=== PATIENT | male | born 1985 | race Hispanic/Latino ===

== ENCOUNTER 2018-10-31 19:36 | Inpatient (IN) | payer MEDICAID ==
[2018-10-31 19:37] VITALS: BMI 22.4
--- NOTE | 2018-10-31 20:11 | ED PDOC ---
HPI: Psych/Substance Abuse Time Seen by Provider: 10/31/18 19:43 Chief Complaint (Nursing): Alcohol Ingestion Chief Complaint (Provider): Intoxicated ED Caveat: Intoxicated History Per: Patient, EMS Onset/Duration Of Symptoms: Mins Additional Complaint(s): 32 year old male presents to the ED via EMS due to intoxication. EMS reports patient was found wandering the streets intoxicated. Patient admits to drinking a pint of vodka today and states he has been drinking every day. He reports he has thoughts of suicide but denies homicidal ideation. Patient states he is unsure as to why he was walking around. Denies chest pain, nausea, vomiting, or shortness of breath. He reports he takes Lexapro but is unsure if it is working. PMD: none provided Past Medical History Reviewed: Historical Data, Nursing Documentation, Vital Signs Vital Signs: Last Vital Signs Temp 98.1 F 10/31/18 19:40 Pulse 143 H 10/31/18 19:40 Resp 20 10/31/18 19:40 BP 151/108 H 10/31/18 19:40 Pulse Ox 98 10/31/18 19:40 - Medical History PMH: No Chronic Diseases Denies: Diabetes, Hepatitis, HIV, HTN, Seizures, Sexually Transmitted Disease - Surgical History Surgical History: No Surg Hx - Family History Family History: States: Unknown Family Hx - Social History Alcohol: Other (Daily) - Immunization History Hx Tetanus Toxoid Vaccination: No Hx Influenza Vaccination: No Hx Pneumococcal Vaccination: No - Home Medications Home Medications: Ambulatory Orders Medication Instructions Recorded Ondansetron ODT [Zofran ODT] 1 odt PO BID PRN #15 odt 08/27/18 Venlafaxine [Effexor XR] 150 mg PO DAILY 08/27/18 chlordiazePOXIDE [Librium] 50 mg PO UPON ADM #20 cap 08/27/18 Escitalopram [Lexapro] 10 mg PO DAILY #30 tab 10/03/18 Gabapentin [Neurontin] 300 mg PO BID #60 cap 10/03/18 traZODone [Desyrel] 100 mg PO HS #30 tab 10/03/18 - Allergies Allergies/Adverse Reactions: Allergies Allergy/AdvReac Type Severity Reaction Status Date / Time nut - unspecified Allergy Severe SHORTNESS Verified 10/31/18 19:40 OF BREATH Review of Systems ROS Statement: Except As Marked, All Systems Reviewed And Found Negative Cardiovascular: Negative for: Chest Pain Respiratory: Negative for: Shortness of Breath Gastrointestinal: Negative for: Nausea, Vomiting Psych: Positive for: Suicidal ideation Physical Exam - Reviewed Nursing Documentation Reviewed: Yes Vital Signs Reviewed: Yes - Physical Exam Appears: Positive for: No Acute Distress Head Exam: Positive for: ATRAUMATIC, NORMOCEPHALIC Skin: Positive for: Normal Color, Warm, Dry Eye Exam: Positive for: Normal appearance Neck: Positive for: Normal, Painless ROM Cardiovascular/Chest: Positive for: Regular Rate, Rhythm Respiratory: Positive for: Normal Breath Sounds. Negative for: Wheezing, Respiratory Distress Gastrointestinal/Abdominal: Positive for: Normal Exam, Soft. Negative for: Tenderness Extremity: Positive for: Normal ROM Neurological/Psych: Positive for: Awake, Alert, Normal Tone - Laboratory Results Result Diagrams: 10/31/18 21:00 10/31/18 21:00 Interpretation Of Abn Labs: 393 alcohol - ECG O2 Sat by Pulse Oximetry: 98 (RA) Pulse Ox Interpretation: Normal - Progress ED Course And Treament: 2259: Dr. Benton to take over care. Crisis eval needed when sobriety reached. Medical Decision Making Medical Decision Making: Initial Impression: Intoxication Initial Plan: --Alcohol serum stat --CMP --Urine drug screen --Urine dipstick --CBC --1:1 observation Scribe Attestation: Documented by Jorge Ward acting as a scribe for Abhishek Grewal MD. Provider Scribe Attestation: All medical record entries made by the Scribe were at my direction and perso jac dictated by me. I have reviewed the chart and agree that the record accurately reflects my personal performance of the history, physical exam, medical decision making, and the department course for this patient. I have also personally directed, reviewed, and agree with the discharge instructions and disposition. Disposition - Clinical Impression Clinical Impression: Alcohol abuse - Patient ED Disposition Is Patient to be Admitted: Transfer of Care - Disposition Disposition Time: 20:30 Condition: FAIR Patient Signed Over To: Spike Benton
[2018-10-31 21:15] LABS: BASO % 0.6 % (0.0-2.0); EOS % 0.1 % (0.0-4.0); HEMOGLOBIN 17.7 g/dL (12.0-18.0); LYMPH # 1.7 K/uL (1.0-4.3); MEAN CELL VOLUME 95.6 fl (80.0-94.0); MEAN CORPUSCULAR HEMOGLOBIN 32.1 pg (27.0-31.0); MEAN CORPUSCULAR HGB CONC 33.5 g/dL (33.0-37.0); MEAN PLATELET VOLUME 7.3 fl (7.2-11.7); MONO # 0.5 K/uL (0.0-0.8); MONO % 8.8 % (0.0-10.0); NEUT # 3.7 K/uL (1.8-7.0); NEUT % 61.5 % (50.0-75.0); RBC 5.52 Mil/uL (4.40-5.90); RED CELL DISTRIBUTION WIDTH 13.8 % (11.5-14.5)
[2018-10-31 22:00] LABS: ALB/GLOB RATIO 1.4 (1.0-2.1); ALBUMIN 5.3 g/dL (3.5-5.0); ALT/SGPT 44 U/L (21-72); AST/SGOT 62 U/L (17-59); BLOOD UREA NITROGEN 9 mg/dl (9-20); CALCIUM 9.4 mg/dL (8.4-10.2); GFR NON-AFRICAN AMERICAN > 60
[2018-11-01 00:50] LABS: BARBITURATES, UR NEGATIVE (NEGATIVE); BENZODIAZEPINES, UR NEGATIVE (NEGATIVE); OPIATES, UR NEGATIVE (NEGATIVE); PHENCYCLIDINE, UR NEGATIVE (NEGATIVE)
--- NOTE | 2018-11-01 01:19 | ED PDOC ---
- Laboratory Results Result Diagrams: 10/31/18 21:00 11/02/18 05:30 Lab Results: Total Bilirubin 0.6 mg/dl (0.2-1.3) 10/31/18 21:00 AST 62 U/L (17-59) H 10/31/18 21:00 ALT 44 U/L (21-72) 10/31/18 21:00 Alkaline Phosphatase 91 U/L (38-126) 10/31/18 21:00 Total Protein 9.0 G/DL (6.3-8.2) H 10/31/18 21:00 Albumin 5.3 g/dL (3.5-5.0) H 10/31/18 21:00 Globulin 3.7 gm/dL (2.2-3.9) 10/31/18 21:00 Albumin/Globulin Ratio 1.4 (1.0-2.1) 10/31/18 21:00 - ECG O2 Sat by Pulse Oximetry: 98 (RA) Pulse Ox Interpretation: Normal Medical Decision Making Medical Decision Makin:00 Patient signed out to this provider by Dr. Grewal pending sobriety and crisis evaluation. 04:09 1 mg of Ativan ordered. 04:27 Patient was evaluated by crisis and diagnosed with alcohol use as per Dr. Ayon. Continues to pend complete sobriety. 07:00 On reevaluation, patient reports feeling shaky and lightheaded. 1 mg of Ativan given. He will be transferred to Dr. Mosqueda pending reevaluation and final disposition. Scribe Attestation: Documented by Crystal Hunter acting as a scribe for Spike Benton MD. Provider Scribe Attestation: All medical record entries made by the Scribe were at my direction and personally dictated by me. I have reviewed the chart and agree that the record accurately reflects my personal performance of the history, physical exam, medical decision making, and the department course for this patient. I have also personally directed, reviewed, and agree with the discharge instructions and disposition. Disposition - Clinical Impression Clinical Impression: Alcohol abuse, Alcohol withdrawal delirium, acute, hyperactive - POA Present On Arrival: None - Disposition Disposition: Transfer of Care Disposition Time: 07:00 Condition: STABLE Patient Signed Over To: Didier Mosqueda III
--- NOTE | 2018-11-01 07:25 | ED PDOC ---
- Laboratory Results Result Diagrams: 10/31/18 21:00 10/31/18 21:00 Lab Results: Total Bilirubin 0.6 mg/dl (0.2-1.3) 10/31/18 21:00 AST 62 U/L (17-59) H 10/31/18 21:00 ALT 44 U/L (21-72) 10/31/18 21:00 Alkaline Phosphatase 91 U/L (38-126) 10/31/18 21:00 Total Protein 9.0 G/DL (6.3-8.2) H 10/31/18 21:00 Albumin 5.3 g/dL (3.5-5.0) H 10/31/18 21:00 Globulin 3.7 gm/dL (2.2-3.9) 10/31/18 21:00 Albumin/Globulin Ratio 1.4 (1.0-2.1) 10/31/18 21:00 - ECG O2 Sat by Pulse Oximetry: 98 (RA) Pulse Ox Interpretation: Normal Medical Decision Making Medical Decision Makin 32yo male, brought to ER due to alcohol intoxication. Patient signed out to me by Dr. Benton pending clinical sobriety. Bedside rounds performed, patient noted to be tremulous as well as diaphoretic. Concern for acute alcohol withdrawal syndrome. Ativan 1mg ordered IV. = 0856 CIWA score of 24, required IV ativan (multiple dose) for relief of symptoms Will admit to Tele-Obs for acute alcohol withdrawal. Case discussed with Dr. Weiss, medicine fashion patternmaker, care transferred. 1130 Dr Weiss in ED. Scribe Attestation: Documented by Taya Leonardo acting as a scribe for Didier Mosqueda DO. Provider Scribe Attestation: All medical record entries made by the Scribe were at my direction and personally dictated by me. I have reviewed the chart and agree that the record accurately reflects my personal performance of the history, physical exam, medical decision making, and the department course for this patient. I have also personally directed, reviewed, and agree with the discharge instructions and disposition. Disposition - Clinical Impression Clinical Impression: Alcohol abuse, Alcohol withdrawal delirium, acute, hyperactive - POA Present On Arrival: None - Disposition Disposition: Admitted as In-Patient Disposition Time: 09:30 Condition: IMPROVED
--- NOTE | 2018-11-01 08:55 | RAD ---
Date of service: 11/01/2018 HISTORY: etoh withdrawal COMPARISON: No prior. FINDINGS: LUNGS: No active pulmonary disease. PLEURA: No significant pleural effusion identified, no pneumothorax apparent. CARDIOVASCULAR: No aortic atherosclerotic calcification present. Normal cardiac size. No pulmonary vascular congestion. OSSEOUS STRUCTURES: No significant abnormalities. VISUALIZED UPPER ABDOMEN: Normal. OTHER FINDINGS: None. IMPRESSION: No acute cardiopulmonary disease appreciated.
--- NOTE | 2018-11-01 09:00 | CARD ---
APPROVED REPORT Date of service: 11/01/2018 EKG Measurement Heart [id number] <Conclusion> Normal sinus rhythm Normal Electrocardiogram
[2018-11-01] MEDS: Dextrose 5%/Lactated Ringer's 1,000 ML IV SCH ×2 (11:49→20:17)
--- NOTE | 2018-11-01 22:23 | CP.PCM.HP ---
History of Present Illness - History of Present Illness History of Present Illness: This is a 32 y/o male admitted for alcohol intoxication and alcohol withdrawal. He was noted walking in the streets of [place] severely intoxicated. He claims that he has been drinking almost daily for the past few days. He was admitted a few times to [facility] and other facilities and had been in different detox program but relapse very easily. He's been living with a friend in [place]. 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 He claims to have been depressed for sometime and has been on Lexapro 10 mg. He claims to have some suicidal ideation recently. His parents and sister live in another town( [place]) . He was not clear about his relationship with his family. Present on Admission - Present on Admission Any Indicators Present on Admission: No History of DVT/PE: No History of Uncontrolled Diabetes: No Urinary Catheter: No Decubitus Ulcer Present: No Review of Systems - Gastrointestinal Gastrointestinal: Belching, Bloating - Neurological Additional comments: tremors Past Patient History - Past Medical History & Family History Past Medical History?: No - Past Social History Smoking Status: Current Some Days Smoker - CARDIAC Hx Cardiac Disorders: No - PULMONARY Hx Respiratory Disorders: No - NEUROLOGICAL Hx Neurological Disorder: No - HEENT Hx HEENT Problems: No - RENAL Hx Chronic Kidney Disease: No - ENDOCRINE/METABOLIC Hx Endocrine Disorders: No - HEMATOLOGICAL/ONCOLOGICAL Hx Blood Disorders: No - INTEGUMENTARY Hx Dermatological Problems: No - MUSCULOSKELETAL/RHEUMATOLOGICAL Hx Musculoskeletal Disorders: No Hx Falls: Yes - GENITOURINARY/GYNECOLOGICAL Hx Genitourinary Disorders: No - PSYCHIATRIC Hx Psychophysiologic Disorder: No Hx Substance Use: Yes - SURGICAL HISTORY Hx Surgeries: Yes Other/Comment: Umbilical Hernia - ANESTHESIA Hx Anesthesia: Yes Hx Anesthesia Reactions: No Meds Allergies/Adverse Reactions: Allergies Allergy/AdvReac Type Severity Reaction Status Date / Time nut - unspecified Allergy Severe SHORTNESS Verified 10/31/18 19:40 OF BREATH Physical Exam - Head Exam Head Exam: NORMAL INSPECTION - Eye Exam Eye Exam: Normal appearance - Respiratory Exam Respiratory Exam: Clear to Auscultation Bilateral - Cardiovascular Exam Cardiovascular Exam: REGULAR RHYTHM - GI/Abdominal Exam GI & Abdominal Exam: Normal Bowel Sounds - Neurological Exam Neurological exam: Altered, Oriented x3 Additional comments: significant DT's - Psychiatric Exam Psychiatric exam: Depressed Results - Vital Signs Recent Vital Signs: Last Vital Signs Temp 98.7 F 11/01/18 16:12 Pulse 85 11/01/18 16:12 Resp 20 11/01/18 16:19 BP 143/81 11/01/18 16:12 Pulse Ox 96 11/01/18 16:12 - Labs Result Diagrams: 10/31/18 21:00 10/31/18 21:00 Labs: Laboratory Results - last 24 hr 10/31/18 11/01/18 21:00 00:12 Urine Opiates Screen Negative Urine Methadone Screen Negative Ur Barbiturates Screen Negative Ur Phencyclidine Scrn Negative Ur Amphetamines Screen Negative U Benzodiazepines Scrn Negative U Oth Cocaine Metabols Negative U Cannabinoids Screen Positive H Alcohol, Quantitative 393 H* Assessment & Plan (1) Alcohol withdrawal delirium, acute, hyperactive Status: Acute (2) Alcohol abuse Status: Acute (3) Depressive disorder Status: Acute - Assessment and Plan (Free Text) Plan: Hydrate NPO for now Zofran pantoprazole Psych eval ativan mg
[2018-11-02] MEDS: Dextrose 5%/Lactated Ringer's 1,000 ML IV SCH (03:31)
[2018-11-02 08:20] LABS: ALB/GLOB RATIO 1.4 (1.0-2.1); ALBUMIN 4.8 g/dL (3.5-5.0); ALT/SGPT 40 U/L (21-72); AST/SGOT 47 U/L (17-59); BLOOD UREA NITROGEN 12 mg/dl (9-20); CALCIUM 10.1 mg/dL (8.4-10.2); GFR NON-AFRICAN AMERICAN > 60
--- NOTE | 2018-11-02 10:31 | CP.PCM.CON ---
History of Present Illness - History of Present Illness History of Present Illness: This is a 32 yr old male with h/o depression and alcohol dependence and admitted because of alcohol intoxication and alcohol withdrawl and currently on librium regimen and psych consult called for evaluation of depression as he was on lexapro and has expressed suicidal ideation recently.pt reports major stressor of having financial problems making him depressed and selfmedicating with alcohol.pt has been detoxed and denies any symptoms of Alcohol withdrawl. Past Patient History - Past Medical History & Family History Past Medical History?: No - Past Social History Smoking Status: Current Some Days Smoker - CARDIAC Hx Cardiac Disorders: No - PULMONARY Hx Respiratory Disorders: No - NEUROLOGICAL Hx Neurological Disorder: No - HEENT Hx HEENT Problems: No - RENAL Hx Chronic Kidney Disease: No - ENDOCRINE/METABOLIC Hx Endocrine Disorders: No - HEMATOLOGICAL/ONCOLOGICAL Hx Blood Disorders: No - INTEGUMENTARY Hx Dermatological Problems: No - MUSCULOSKELETAL/RHEUMATOLOGICAL Hx Musculoskeletal Disorders: No Hx Falls: Yes - GENITOURINARY/GYNECOLOGICAL Hx Genitourinary Disorders: No - PSYCHIATRIC Hx Psychophysiologic Disorder: No Hx Substance Use: Yes - SURGICAL HISTORY Hx Surgeries: Yes Other/Comment: Umbilical Hernia - ANESTHESIA Hx Anesthesia: Yes Hx Anesthesia Reactions: No Meds Allergies/Adverse Reactions: Allergies Allergy/AdvReac Type Severity Reaction Status Date / Time nut - unspecified Allergy Severe SHORTNESS Verified 10/31/18 19:40 OF BREATH - Medications Medications: Current Medications Chlordiazepoxide (Librium) 25 mg PO Q6 [facility] Last Admin: 11/02/18 03:31 Dose: 25 mg Folic Acid (Folic Acid) 1 mg PO DAILY [facility] Last Admin: 11/01/18 18:29 Dose: 1 mg Dextrose/Lactated Ringer's (Dextrose 5%/Lactated Ringer's) 1,000 mls @ 125 mls/hr IV .Q8H [facility] Stop: 11/02/18 11:26 Last Admin: 11/02/18 03:31 Dose: 125 mls/hr Ondansetron HCl (Zofran Inj) 6 mg IVP Q6 PRN PRN Reason: Nausea/Vomiting Last Admin: 11/01/18 11:42 Dose: 6 mg Pantoprazole Sodium (Protonix Inj) 40 mg IVP DAILY [facility] Last Admin: 11/01/18 11:48 Dose: 40 mg Thiamine HCl (Vitamin B1 Tab) 100 mg PO DAILY [facility] Last Admin: 11/01/18 18:29 Dose: 100 mg Physical Exam - Psychiatric Exam Psychiatric exam: Anxious, Depressed Additional comments: Pt is alert,oriented x3 with intact cognition.pt has depressed mood but affect is brighter with treatment and denies suicidal ideation..no psychosis and fair insight and fair judgement . Results - Vital Signs Recent Vital Signs: Last Vital Signs Temp 98.2 F 11/02/18 07:46 Pulse 71 11/02/18 07:46 Resp 18 11/02/18 07:46 BP 135/88 11/02/18 07:46 Pulse Ox 95 11/02/18 07:46 - Labs Result Diagrams: 10/31/18 21:00 11/02/18 05:30 Labs: Laboratory Results - last 24 hr 11/02/18 05:30 Sodium 140 Potassium 3.7 Chloride 93 L Carbon Dioxide 31 H Anion Gap 20 BUN 12 Creatinine 0.9 Est GFR ( Amer) > 60 Est GFR (Non-Af Amer) > 60 Random Glucose 92 Calcium 10.1 Magnesium 2.2 Total Bilirubin 1.4 H AST 47 ALT 40 Alkaline Phosphatase 64 Total Protein 8.1 Albumin 4.8 Globulin 3.4 Albumin/Globulin Ratio 1.4 Assessment & Plan - Assessment and Plan (Free Text) Assessment: Major depression,moderate Alcohol dependence Plan: i offered pt voluntary inpt psych admission but pt does not want to be admitted to psych unit but agreed to go to inpatient Alcohol rehab and licensed master social worker will provide referral to inpt alcohol rehab upon d/c . Pt has agreed to start lexapro 10 mg daily for depression and seroquel 25 mg hs . Alert psychiatry if worsening of depression.
[2018-11-03] MEDS: Dextrose 5%/0.45% NS 1,000 ML IV SCH (13:59)
[2018-11-04 00:59] VITALS: RESP 20
[2018-11-04] MEDS: Dextrose 5%/0.45% NS 1,000 ML IV SCH (02:00)
[2018-11-04 09:13] VITALS: BP 106/65; PULSE 77; TEMP 98.1
[2018-11-04] MEDS ORDERED: Pantoprazole 40 mg EC Tab PO SCH (09:45)
[2018-11-04 10:56] VITALS: O2SAT 98
--- NOTE | 2018-11-04 11:20 | CP.PCM.PCO ---
Assessment/Plan - Assessment and Plan (Free Text) Assessment: Patient seen and examined today Denies chest pain shortness of breath, nausea vomiting No more tremors visualized, librium tapered. Patient has a discharge plan, will move in with parents and referred to outpatient alcohol rehab. SW has given patient rehab information. Rx for seroquel and lexapro sent to pharmacy. Discussed with Dr Del Real. Agreed with dc plan.
--- NOTE | 2018-11-04 11:25 | CP.PCM.PN ---
Subjective - Date & Time of Evaluation Date of Evaluation: 11/02/18 Time of Evaluation: 11:00 - Subjective Subjective: patient seen and examined at bedside. Interim events noted Chills / tremor reported denies cp/sob/fever available diagnostic data reviewed Review of Systems All systems: reviewed and no additional remarkable complaints except mentioned above Objective Vital Signs Stable - Constitutional Appears: Non-toxic, No Acute Distress Head Exam: NORMAL INSPECTION Eye Exam: Normal appearance Respiratory Exam: NORMAL BREATHING PATTERN Cardiovascular Exam: +S1, +S2 GI & Abdominal Exam: Soft Neurological Exam: Alert, Awake Psychiatric exam: Normal Affect, Normal Mood Skin Exam: Normal Color, Warm Assessment and Plan monitor vitals monitor labs Cont meds Cont tx psych consult consultants appreciated input monitor for DTs rest of plan as ordered Assessment and Plan (1) Alcohol dependence Status: Acute (2) Depressive disorder Status: Acute
--- NOTE | 2018-11-04 11:26 | CP.PCM.PN ---
Subjective - Date & Time of Evaluation Date of Evaluation: 11/03/18 Time of Evaluation: 11:00 - Subjective Subjective: patient seen and examined at bedside. Interim events noted Chills / tremor reported though improved denies cp/sob/fever available diagnostic data reviewed Review of Systems All systems: reviewed and no additional remarkable complaints except mentioned above Objective Vital Signs Stable - Constitutional Appears: Non-toxic, No Acute Distress Head Exam: NORMAL INSPECTION Eye Exam: Normal appearance Respiratory Exam: NORMAL BREATHING PATTERN Cardiovascular Exam: +S1, +S2 GI & Abdominal Exam: Soft Neurological Exam: Alert, Awake Psychiatric exam: Normal Affect, Normal Mood Skin Exam: Normal Color, Warm Assessment and Plan monitor vitals monitor labs Cont meds Cont tx psych consult consultants appreciated input monitor for DTs IVF rest of plan as ordered Assessment and Plan (1) Alcohol dependence Status: Acute (2) Depressive disorder Status: Acute
--- NOTE | 2018-11-04 11:28 | CP.PCM.DIS ---
Provider - Provider Date of Admission: 11/01/18 09:12 Attending physician: Allan Weiss MD Consults: 11/01/18 17:24 Social Work Referral Routine Comment: safe discharge Physician Instructions: Reason For Exam: homeless , etoh abuser 11/02/18 07:19 Psychiatry Consult Routine Comment: Consulting Provider: Asif Ribeiro Consulting Physician: Asif Ribeiro Reason for Consult: Etoh abuse Time Spent in preparation of Discharge (in minutes): 30 Diagnosis - Discharge Diagnosis (1) Alcohol dependence Status: Acute (2) Depressive disorder Status: Acute Hospital Course - Lab Results Lab Results: Most Recent Lab Values WBC 6.0 K/uL (4.8-10.8) 10/31/18 21:00 RBC 5.52 Mil/uL (4.40-5.90) 10/31/18 21:00 Hgb 17.7 g/dL (12.0-18.0) 10/31/18 21:00 Hct 52.8 % (35.0-51.0) H 10/31/18 21:00 MCV 95.6 fl (80.0-94.0) H 10/31/18 21:00 MCH 32.1 pg (27.0-31.0) H 10/31/18 21:00 MCHC 33.5 g/dL (33.0-37.0) 10/31/18 21:00 RDW 13.8 % (11.5-14.5) 10/31/18 21:00 Plt Count 178 K/uL (130-400) 10/31/18 21:00 MPV 7.3 fl (7.2-11.7) 10/31/18 21:00 Neut % (Auto) 61.5 % (50.0-75.0) 10/31/18 21:00 Lymph % (Auto) 29.0 % (20.0-40.0) 10/31/18 21:00 [place] % (Auto) 8.8 % (0.0-10.0) 10/31/18 21:00 Eos % (Auto) 0.1 % (0.0-4.0) 10/31/18 21:00 Baso % (Auto) 0.6 % (0.0-2.0) 10/31/18 21:00 Neut # (Auto) 3.7 K/uL (1.8-7.0) 10/31/18 21:00 Lymph # (Auto) 1.7 K/uL (1.0-4.3) 10/31/18 21:00 [place] # (Auto) 0.5 K/uL (0.0-0.8) 10/31/18 21:00 Eos # (Auto) 0.0 K/uL (0.0-0.7) 10/31/18 21:00 Baso # (Auto) 0.0 K/uL (0.0-0.2) 10/31/18 21:00 Sodium 140 mmol/l (132-148) 11/02/18 05:30 Potassium 3.7 MMOL/L (3.6-5.0) 11/02/18 05:30 Chloride 93 mmol/L (98-107) L 11/02/18 05:30 Carbon Dioxide 31 mmol/L (22-30) H 11/02/18 05:30 Anion Gap 20 (10-20) 11/02/18 05:30 BUN 12 mg/dl (9-20) 11/02/18 05:30 Creatinine 0.9 mg/dl (0.8-1.5) 11/02/18 05:30 Est GFR ( Amer) > 60 11/02/18 05:30 Est GFR (Non-Af Amer) > 60 11/02/18 05:30 POC Glucose (mg/dL) 112 mg/dL (65-110) H 10/31/18 19:56 Random Glucose 92 mg/dL (75-110) 11/02/18 05:30 Calcium 10.1 mg/dL (8.4-10.2) 11/02/18 05:30 Magnesium 2.2 MG/DL (1.6-2.3) 11/02/18 05:30 Total Bilirubin 1.4 mg/dl (0.2-1.3) H 11/02/18 05:30 AST 47 U/L (17-59) 11/02/18 05:30 ALT 40 U/L (21-72) 11/02/18 05:30 Alkaline Phosphatase 64 U/L (38-126) 11/02/18 05:30 Total Protein 8.1 G/DL (6.3-8.2) 11/02/18 05:30 Albumin 4.8 g/dL (3.5-5.0) 11/02/18 05:30 Globulin 3.4 gm/dL (2.2-3.9) 11/02/18 05:30 Albumin/Globulin Ratio 1.4 (1.0-2.1) 11/02/18 05:30 Urine Opiates Screen Negative (NEGATIVE) 11/01/18 00:12 Urine Methadone Screen Negative (NEGATIVE) 11/01/18 00:12 Ur Barbiturates Screen Negative (NEGATIVE) 11/01/18 00:12 Ur Phencyclidine Scrn Negative (NEGATIVE) 11/01/18 00:12 Ur Amphetamines Screen Negative (NEGATIVE) 11/01/18 00:12 U Benzodiazepines Scrn Negative (NEGATIVE) 11/01/18 00:12 U Oth Cocaine Metabols Negative (NEGATIVE) 11/01/18 00:12 U Cannabinoids Screen Positive (NEGATIVE) H 11/01/18 00:12 Alcohol, Quantitative 393 mg/dl (0-10) H* 10/31/18 21:00 - Hospital Course Hospital Course: 32 y/o male admitted for alcohol intoxication and alcohol withdrawal. He was noted walking in the streets of [place] severely intoxicated. He claims that he has been drinking almost daily for the past few days. Depressive disorder with previous treatment though patient not taking medication psych was consulted for further eval/management patient was treated, stabilized, and discharge in stable condition with a discharge plan for detox. Discharge Exam - Head Exam Head Exam: NORMAL INSPECTION - Eye Exam Eye Exam: Normal appearance - Respiratory Exam Respiratory Exam: UNREMARKABLE - Cardiovascular Exam Cardiovascular Exam: +S1, +S2 - GI/Abdominal Exam GI & Abdominal Exam: Soft - Neurological Exam Neurological exam: Alert, Oriented x3 - Psychiatric Exam Psychiatric exam: Normal Affect, Normal Mood - Skin Skin Exam: Normal Color, Warm Discharge Plan - Discharge Medications Prescriptions: Escitalopram [Lexapro] 10 mg PO DAILY #30 tab QUEtiapine [Seroquel] 25 mg PO HS #30 tab - Follow Up Plan Condition: STABLE Disposition: HOME/ ROUTINE Instructions: Alcohol Use - When Is Drinking a Problem?, Alcohol Abuse and Alcoholism (DC) Additional Instructions: follow up with outpatient services this week cut down on alcohol intake return to the eD with any worsening or concerning symptoms Referrals: [facility] [place] [Outside]
== END 2018-11-04 12:56 | disposition home or self-care (01) | DRG 751 ==
LOC: H.ER 19:36 → H.ERHOLD 11-01 09:12 → H.TEL 11-01 16:03
PROVIDERS: ADMIT Family Medicine; ATTEND Family Medicine
DX: F10.231 Alcohol dependence with withdrawal delirium (principal); R45.851 Suicidal ideations; Z91.83 Wandering in diseases classified elsewhere; F32.1 Major depressive disorder, single episode, moderate; F10.229 Alcohol dependence with intoxication, unspecified; Y90.8 Blood alcohol level of 240 mg/100 ml or more; Z91.018 Allergy to other foods; F41.9 Anxiety disorder, unspecified; F17.200 Nicotine dependence, unspecified, uncomplicated